=== PATIENT | male | born 1995 | race African-American/Black ===

== ENCOUNTER 2024-06-19 20:32 | Emergency (ER) | payer OTHER ==
[~2024-06-19] VITALS: Ht 182.9 cm; Wt 81.6 kg
[2024-06-19] MEDS: LEVALBUTEROL HCL NEB 1.25 MG/0.5 ML VIAL.NEB NEB SCH (21:02)
[2024-06-19 21:19] VITALS: O2SAT 98
[2024-06-19] MEDS ORDERED: PRED50TA PO (21:25)
[2024-06-19] MEDS ORDERED: predniSONE 20 MG TABLET ONE (21:29)
[2024-06-19] MEDS: predniSONE 20 MG TABLET PO ONE (21:30)
[2024-06-19] MEDS: ACETAMINOPHEN ES 500 MG TABLET PO ONE (21:30)
[2024-06-19 21:34] VITALS: O2SAT 99
[2024-06-19] MEDS: LEVALBUTEROL HCL NEB 1.25 MG/0.5 ML VIAL.NEB ONE (21:36)
[2024-06-19] MEDS ORDERED: LEVA15HF4 INH (21:59)
[2024-06-19 22:01] VITALS: BP 126/96; TEMP 213.6; O2SAT 99
== END 2024-06-19 22:09 | disposition home or self-care (01) ==
LOC: ER 21:25
DX: J45.901 Unspecified asthma with (acute) exacerbation (principal); J06.9 Acute upper respiratory infection, unspecified; F41.9 Anxiety disorder, unspecified; Z79.52 Long term (current) use of systemic steroids; Z88.0 Allergy status to penicillin; Z88.2 Allergy status to sulfonamides; Z88.5 Allergy status to narcotic agent; Z88.6 Allergy status to analgesic agent
CPT/HCPCS: 99283; 94640; J7512